=== PATIENT | female | born 1985 | race Caucasian/White ===

== ENCOUNTER 2016-07-12 14:15 | Emergency (ER) | payer MEDICAID ==
[~2016-07-12] VITALS: Ht 170.2 cm; Wt 124.6 kg
[~2016-07-12 14:15] MED LIST: BUSP5TAB2 PO; BUTA1CAP57 PO; CEPH-368 PO; CIPR500T87 PO; CLON0.5T PO; FEXO180T72 PO; IBUP800T PO; LITH600C PO; NORG1TAB7 PO; PROP20TA PO; PROP40TA PO
[2016-07-12] MEDS ORDERED: MORPHINE SULFATE 4 MG/ML, 1ML ONE ×2 (15:52→17:17)
[2016-07-12] MEDS ORDERED: ONDANSETRON 2MG/ML, 2ML ONE (15:52)
[2016-07-12] MEDS: MORPHINE SULFATE 4 MG/ML, 1ML IVPush PRN ×2 (15:56→17:20)
[2016-07-12] MEDS ORDERED: SODIUM CHLORIDE FLUSH 10ML SYR IVF ONE (16:00)
[2016-07-12] MEDS ORDERED: SODIUM CHLORIDE 0.9% 1,000ML IV ONE (16:00)
[2016-07-12] MEDS ORDERED: ONDANSETRON 2MG/ML, 2ML IVPush ONE (16:00)
[2016-07-12 16:09] LABS: HEMOGLOBIN 13.8 g/dL (11.7-16.4)
[2016-07-12 16:22] LABS: BLOOD UREA NITROGEN 8 mg/dL (7-18)
[2016-07-12 16:27] LABS: ASPARTATE AMINO TRANSFERASE 19 U/L (15-37)
[2016-07-12 18:59] VITALS: BP 130/65
== END 2016-07-12 19:04 | disposition home or self-care (01) ==
LOC: ED 15:20
DX: R10.31 Right lower quadrant pain (principal); J45.909 Unspecified asthma, uncomplicated; R51 Headache; G89.29 Other chronic pain
CPT/HCPCS: 36415; 74176; 80053; 81001; 83690; 84703; 85025; 87086; 96361; 96374; 96375; 96376; 99285; J2405; J7030

== ENCOUNTER 2018-04-17 14:21 | Inpatient (IN) | payer MEDICAID ==
[~2018-04-17] VITALS: Ht 172.7 cm; Wt 134.0 kg
[~2018-04-17 14:21] MED LIST changes: +IBUP-1223 PO; -IBUP800T PO
[2018-04-17 14:59] LABS: BASOPHILS # (AUTO) 0.02 x10^3/uL (0-0.1); BASOPHILS % (AUTO) 0 % (0-1); EOSINOPHILS # (AUTO) 0.15 x10^3/uL (0-0.4); EOSINOPHILS % (AUTO) 2 % (1-7); LYMPHOCYTES # (AUTO) 2.07 x10^3/uL (1-3.4); LYMPHOCYTES % (AUTO) 20 % (22-44); MD NO; MEAN CORPUSCULAR HEMOGLOBIN 30.8 pg (27.0-34.8); MEAN CORPUSCULAR HGB CONC 34.7 g/dL (32.4-35.8); MEAN CORPUSCULAR VOLUME 88.9 fL (80-100); MEAN PLATELET VOLUME 7.5 fL (7.4-10.4); MONOCYTES # (AUTO) 0.61 x10^3/uL (0.2-0.8); MONOCYTES % (AUTO) 6 % (2-9); NEUTROPHILS # (AUTO) 7.69 x10^3/uL (1.8-6.8); NEUTROPHILS % (AUTO) 73 % (42-75); PLATELET COUNT 299 x10^3/uL (130-400); RED BLOOD COUNT 4.58 x10^6/uL (3.82-5.3)
[2018-04-17 15:09] LABS: ALANINE AMINOTRANSFERASE 62 U/L (12-78); ALBUMIN 3.8 g/dL (3.4-5.0); ANION GAP 9 mmol/L (5-15); CALCIUM 9.3 mg/dL (8.5-10.1); CHLORIDE 108 mmol/L (98-107)
[2018-04-17 15:11] LABS: ALKALINE PHOSPHATASE 51 U/L (45-117); BILIRUBIN,TOTAL 0.5 mg/dL (0.2-1.0); CREATININE 0.83 mg/dL (0.55-1.02); TOTAL PROTEIN 7.9 g/dL (6.4-8.2)
[2018-04-17] MEDS ORDERED: ALBUTEROL INH (15:11)
[2018-04-17] MEDS ORDERED: ACET-1600 PO (15:11)
[2018-04-17 15:29] LABS: HCG UR SG 1.024 (1.003-1.030); MICROSCOPIC AUTO
[2018-04-17 15:34] LABS: CULTURE INDICATED? NO
[2018-04-17] MEDS ORDERED: SODIUM CHLORIDE 0.9% 1,000ML IVBOLUS ONE (16:00)
[2018-04-17] MEDS ORDERED: ONDANSETRON 2MG/ML, 2ML IVPush ONE (16:00)
[2018-04-17] MEDS ORDERED: SODIUM CHLORIDE FLUSH 10ML SYR IVF ONE (16:00)
[2018-04-17] MEDS ORDERED: MORPHINE SULFATE 4 MG/ML, 1ML IVPush PRN ×2 (16:00→18:00)
[2018-04-17] MEDS ORDERED: FAMO-79 PO (16:17)
[2018-04-17] MEDS ORDERED: MORPHINE SULFATE 4 MG/ML, 1ML ONE (16:25)
[2018-04-17] MEDS ORDERED: ONDANSETRON 2MG/ML, 2ML ONE (16:25)
[2018-04-17] MEDS ORDERED: HYDROmorphone 2 MG/ML, 1ML IVPush PRN ×2 (17:30→20:30)
[2018-04-17] MEDS ORDERED: HYDROmorphone 2 MG/ML, 1ML ONE (18:00)
[2018-04-17] MEDS ORDERED: MIDAZOLAM 1 MG/ML, 2ML ONE (18:41)
[2018-04-17] MEDS ORDERED: SUCCINYLCHOLINE 20 MG/ML, 10ML ONE ×2 (18:41→19:18)
[2018-04-17] MEDS ORDERED: FENTANYL PF 100 MCG/2ML ONE ×3 (18:41→20:15)
[2018-04-17] MEDS ORDERED: PROPOFOL 10 MG/ML, 20ML ONE (19:18)
[2018-04-17] MEDS ORDERED: ROCURONIUM 10 MG/ML,10ML ONE (19:18)
[2018-04-17] MEDS ORDERED: CEFAZOLIN 1,000 MG ONE (19:18)
[2018-04-17] MEDS ORDERED: GLYCOPYRROLATE 0.2MG/1ML, 5ML ONE (19:18)
[2018-04-17] MEDS ORDERED: NEOSTIGMINE 1 MG/ML, 10ML ONE (19:18)
[2018-04-17] MEDS ORDERED: BUPIVACAINE/PF 0.5% INFIL ONE (20:01)
[2018-04-17] MEDS: FENTANYL PF 100 MCG/2ML IV PRN ×2 (20:20→20:37)
[2018-04-17] MEDS ORDERED: OXYcodone 5 MG/5 ML ORAL.SOL UDC ONE (20:25)
[2018-04-17] MEDS ORDERED: METOCLOPRAMIDE 5 MG/ML, 2ML ONE (20:28)
[2018-04-17] MEDS ORDERED: ALBUTEROL SULFATE 2.5 MG/3 ML NPPB PRN (20:30)
[2018-04-17] MEDS ORDERED: LORazepam 2 MG/ML, 1ML IVPush PRN (20:30)
[2018-04-17] MEDS ORDERED: OXYcodone 5 MG/5 ML ORAL.SOL UDC PO PRN (20:30)
[2018-04-17] MEDS ORDERED: PROCHLORPERAZINE 5 MG/ML, 2ML IV PRN (20:30)
[2018-04-17] MEDS ORDERED: METOCLOPRAMIDE 5 MG/ML, 2ML IV PRN (20:30)
[2018-04-17] MEDS ORDERED: SCOPOLAMINE PATCH, 1.5MG PATCH.TD72 TD PRN (20:30)
[2018-04-17] MEDS ORDERED: ACETAMINOPHEN 325 MG TABLET PO PRN (20:30)
[2018-04-17] MEDS ORDERED: MEPERIDINE/PF 25MG/0.5ML IVPush PRN (20:30)
[2018-04-17] MEDS ORDERED: OXYC-302 PO (21:17)
[2018-04-17 21:18] VITALS: BP 117/80
== END 2018-04-17 22:45 | disposition home or self-care (01) | DRG 357 ==
LOC: OR 18:32 → EDIP 18:40 → 4NOR 21:00
PROVIDERS: ADMIT Obstetrics & Gynecology; ATTEND Obstetrics & Gynecology
PROC: 0WJJ4ZZ Inspection of Pelvic Cavity, Percutaneous Endoscopic Approach (ICD-10-PCS; principal; 2018-04-17 18:30)
DX: R10.2 Pelvic and perineal pain (principal); Z68.41 Body mass index [BMI] 40.0-44.9, adult; F41.1 Generalized anxiety disorder; J32.9 Chronic sinusitis, unspecified; E66.9 Obesity, unspecified; I10 Essential (primary) hypertension; J45.909 Unspecified asthma, uncomplicated
CPT/HCPCS: 36415; 76830; 80053; 81001; 81025; 83690; 85025; G0378; J0690; J1170; J2250; J2405; J2704; J2710; J3010; J3490; J0330; J2765; J7030

== ENCOUNTER 2018-05-06 19:08 | Emergency (ER) | payer SELFPAY ==
[~2018-05-06] VITALS: Ht 172.7 cm; Wt 131.0 kg
[~2018-05-06 19:08] MED LIST changes: +ACET-1600 PO; +ALBUTEROL INH; +FAMO-79 PO; +OXYC-302 PO
--- NOTE | 2018-05-06 19:24 | NUR ---
PT SAID SHE WAS SITTING ON TOILET AND HAD A SHARP PAIN. PT HAS HAD FEVER AT HOME OF 102 THIS MORNING, COUGH SINCE SURGERY. PT HAS ALSO HAD PAINFUL URINATION AND FREQUENCY
[2018-05-06] MEDS ORDERED: SODIUM CHLORIDE FLUSH 10ML SYR IVF ONE (19:30)
--- NOTE | 2018-05-06 20:05 | NUR ---
FROILAN SEN TO LAB. PT RESTING WITH NO NEEDS AT THIS TIME. CALL LIGHT IN REACH
[2018-05-06 20:10] LABS: MICROSCOPIC NOT IND
[2018-05-06 20:11] LABS: CULTURE INDICATED? NO
[2018-05-06 20:12] LABS: BASOPHILS # (AUTO) 0.03 x10^3/uL (0-0.1); BASOPHILS % (AUTO) 0 % (0-1); EOSINOPHILS # (AUTO) 0.18 x10^3/uL (0-0.4); EOSINOPHILS % (AUTO) 2 % (1-7); LYMPHOCYTES # (AUTO) 3.08 x10^3/uL (1-3.4); LYMPHOCYTES % (AUTO) 27 % (22-44); MD NO; MEAN CORPUSCULAR HEMOGLOBIN 30.7 pg (27.0-34.8); MEAN CORPUSCULAR HGB CONC 34.2 g/dL (32.4-35.8); MEAN CORPUSCULAR VOLUME 89.7 fL (80-100); MEAN PLATELET VOLUME 7.5 fL (7.4-10.4); MONOCYTES # (AUTO) 0.55 x10^3/uL (0.2-0.8); MONOCYTES % (AUTO) 5 % (2-9); NEUTROPHILS # (AUTO) 7.65 x10^3/uL (1.8-6.8); NEUTROPHILS % (AUTO) 67 % (42-75); PLATELET COUNT 312 x10^3/uL (130-400); RED BLOOD COUNT 4.48 x10^6/uL (3.82-5.3); RED CELL DISTRIBUTION WIDTH 12.7 % (9.6-15.2)
[2018-05-06 20:15] LABS: ALANINE AMINOTRANSFERASE 62 U/L (12-78); ALBUMIN 3.9 g/dL (3.4-5.0); ANION GAP 9 mmol/L (5-15); CALCIUM 8.9 mg/dL (8.5-10.1); CHLORIDE 109 mmol/L (98-107); CREATININE 0.62 mg/dL (0.55-1.02)
[2018-05-06 20:19] LABS: ALKALINE PHOSPHATASE 48 U/L (45-117); BILIRUBIN,TOTAL 0.3 mg/dL (0.2-1.0); TOTAL PROTEIN 8.1 g/dL (6.4-8.2)
--- NOTE | 2018-05-06 20:46 | NUR ---
pt to ct
[2018-05-06] MEDS ORDERED: OMNIPAQUE 350 MG/ML, 100ML BOTTLE ONE (20:56)
--- NOTE | 2018-05-06 21:30 | NUR ---
PT RESTING WAITING FOR CT RESULTS. VSS. CALL LIGHT IN REACH
[2018-05-06 22:10] VITALS: BP 145/89
--- NOTE | 2018-05-06 23:01 | NUR ---
Patient given discharge instructions and they have confirmed that they understand the instructions. Patient ambulatory with steady gait.
== END 2018-05-06 23:04 | disposition home or self-care (01) ==
LOC: ED 19:27
DX: R10.815 Periumbilic abdominal tenderness (principal); R10.84 Generalized abdominal pain; F41.1 Generalized anxiety disorder; Z87.19 Personal history of other diseases of the digestive system
CPT/HCPCS: 36415; 74177; 80053; 81003; 83690; 84703; 85025; 99284; Q9967

== ENCOUNTER 2019-02-17 15:24 | Emergency (ER) | payer MEDICAID ==
[~2019-02-17] VITALS: Ht 172.7 cm; Wt 121.9 kg
[~2019-02-17 15:24] MED LIST changes: +AMPH20CA7 PO; +GABA300C10 PO; +PANT40TA5 PO; +PROP10TA16 PO; +TOPI50TA35 PO
[2019-02-17] MEDS ORDERED: MORPHINE SULFATE 4 MG/ML, 1ML IVPush PRN (17:30)
--- NOTE | 2019-02-17 17:58 | NUR ---
Patient provided clean catch urine, prefers not to have straight catheterization for urine sample. Dr. Rouse notified, OK to send clean catch per Dr. Rouse, verbal order read back and verified.
[2019-02-17] MEDS ORDERED: DIPHENHYDRAMINE 50 MG/ML, 1ML IVPush ONE (18:00)
[2019-02-17] MEDS ORDERED: METOCLOPRAMIDE 5 MG/ML, 2ML IVPush ONE (18:00)
--- NOTE | 2019-02-17 18:10 | NUR ---
Unable to achieve IV access, Dr. Rouse aware of reason for lab and medication delay. Lab called to draw blood.
--- NOTE | 2019-02-17 18:11 | NUR ---
Patient transported for ultrasound at this time.
[2019-02-17] MEDS ORDERED: SODIUM CHLORIDE FLUSH 10ML SYR IVF ONE (18:30)
[2019-02-17 18:31] LABS: MICROSCOPIC NOT IND
[2019-02-17 18:35] LABS: CULTURE INDICATED? NO
--- NOTE | 2019-02-17 18:50 | NUR ---
TASK RN: Provided report to ROWAN Hough. All questions answered. ROWAN Hough to assume care of this pt.
[2019-02-17 19:09] LABS: BASOPHILS # (AUTO) 0.05 x10^3/uL (0-0.1); BASOPHILS % (AUTO) 1 % (0-1); EOSINOPHILS # (AUTO) 0.09 x10^3/uL (0-0.4); EOSINOPHILS % (AUTO) 1 % (1-7); LYMPHOCYTES # (AUTO) 2.66 x10^3/uL (1-3.4); LYMPHOCYTES % (AUTO) 23 % (22-44); MD NO; MEAN CORPUSCULAR HEMOGLOBIN 31.6 pg (27.0-34.8); MEAN CORPUSCULAR HGB CONC 33.9 g/dL (32.4-35.8); MEAN CORPUSCULAR VOLUME 93.2 fL (80-100); MEAN PLATELET VOLUME 7.6 fL (7.4-10.4); MONOCYTES # (AUTO) 0.45 x10^3/uL (0.2-0.8); MONOCYTES % (AUTO) 4 % (2-9); NEUTROPHILS # (AUTO) 8.31 x10^3/uL (1.8-6.8); NEUTROPHILS % (AUTO) 72 % (42-75); PLATELET COUNT 326 x10^3/uL (130-400); RED BLOOD COUNT 4.32 x10^6/uL (3.82-5.3); RED CELL DISTRIBUTION WIDTH 13.7 % (9.6-15.2)
[2019-02-17] MEDS ORDERED: DIPHENHYDRAMINE 50 MG/ML, 1ML ONE (19:14)
[2019-02-17] MEDS ORDERED: METOCLOPRAMIDE 5 MG/ML, 2ML ONE (19:15)
[2019-02-17] MEDS ORDERED: MORPHINE SULFATE 4 MG/ML, 1ML ONE (19:15)
[2019-02-17 19:22] LABS: ALBUMIN 3.9 g/dL (3.4-5.0); ANION GAP 10 mmol/L (5-15); CALCIUM 9.1 mg/dL (8.5-10.1); CHLORIDE 110 mmol/L (98-107)
[2019-02-17 19:28] LABS: ALANINE AMINOTRANSFERASE 37 U/L (12-78); ALKALINE PHOSPHATASE 58 U/L (45-117); BILIRUBIN,TOTAL 0.9 mg/dL (0.2-1.0); CREATININE 0.74 mg/dL (0.55-1.02); TOTAL PROTEIN 8.3 g/dL (6.4-8.2)
--- NOTE | 2019-02-17 19:30 | NUR ---
reports pain is a 8/10 in abd., After pain medications pt reports pain is a 2/10 and pt also verbalizes relief from nausea.
--- NOTE | 2019-02-17 19:46 | NUR ---
PT PLACED FOR RECHECK BY ERP
--- NOTE | 2019-02-17 20:05 | NUR ---
pt ambulatory to the bathroom with steady gait
[2019-02-17 20:18] VITALS: BP 152/65
--- NOTE | 2019-02-17 20:18 | NUR ---
pt resting on gurwilkinson. no acute distress. no requests at this time.
== END 2019-02-17 20:56 | disposition home or self-care (01) ==
LOC: ED 20:10
DX: R10.2 Pelvic and perineal pain (principal); G89.29 Other chronic pain; R11.0 Nausea; R10.31 Right lower quadrant pain; F41.1 Generalized anxiety disorder; Z90.49 Acquired absence of other specified parts of digestive tract; Z88.0 Allergy status to penicillin; Z88.8 Allergy status to other drugs, medicaments and biological substances; Z88.6 Allergy status to analgesic agent
CPT/HCPCS: 36415; 76830; 80053; 81003; 85025; 96374; 96375; 99284; J1200; J2270

== ENCOUNTER 2019-02-28 17:18 | Emergency (ER) | payer MEDICAID, OTHER ==
[~2019-02-28] VITALS: Ht 172.7 cm; Wt 122.6 kg
[2019-02-28 17:33] VITALS: BP 164/96
[2019-02-28] MEDS ORDERED: ACETAMINOPHEN 500 MG TABLET ONE (19:00)
[2019-02-28] MEDS ORDERED: ACETAMINOPHEN 500 MG TABLET PO ONE (19:00)
[2019-02-28] MEDS ORDERED: OXYcodone 5 MG/5 ML ORAL.SOL UDC PO PRN ×2 (20:30→21:00)
[2019-02-28] MEDS ORDERED: OXYcodone 5 MG/5 ML ORAL.SOL UDC ONE (20:58)
== END 2019-02-28 21:27 | disposition home or self-care (01) ==
LOC: ED 21:10
DX: S82.892A Other fracture of left lower leg, initial encounter for closed fracture (principal); G89.11 Acute pain due to trauma; M25.562 Pain in left knee; M25.572 Pain in left ankle and joints of left foot; R51 Headache; G89.29 Other chronic pain; Z90.49 Acquired absence of other specified parts of digestive tract; W10.9XXA Fall (on) (from) unspecified stairs and steps, initial encounter; Y93.89 Activity, other specified; Y92.69 Other specified industrial and construction area as the place of occurrence of the external cause; Y99.8 Other external cause status
CPT/HCPCS: 29515; 99283

== ENCOUNTER 2019-03-01 14:05 | Emergency (ER) | payer OTHER ==
[~2019-03-01] VITALS: Ht 172.7 cm; Wt 129.2 kg
[2019-03-01 14:20] VITALS: BP 168/94
[2019-03-01] MEDS ORDERED: OXYcodone/APAP 7.5/325MG TABLET PO ONE (15:30)
[2019-03-01] MEDS ORDERED: OXYcodone/APAP 7.5/325MG TABLET ONE (15:36)
--- NOTE | 2019-03-01 15:57 | NUR ---
DC EDUCATION PROVIDED, PT DEMONSTRATES UNDERSTANDING. PT AMBULATED STEADILY TO DC WITH RN USING OWN CRUTCHES. FRIEND TO TRANSPORT PT HOME FROM [facility]
== END 2019-03-01 15:59 | disposition home or self-care (01) ==
LOC: ED 15:50
DX: M25.872 Other specified joint disorders, left ankle and foot (principal); Z90.49 Acquired absence of other specified parts of digestive tract
CPT/HCPCS: 29515; 99283

== ENCOUNTER 2019-03-26 12:29 | Emergency (ER) | payer MEDICAID ==
[~2019-03-26] VITALS: Ht 172.7 cm; Wt 125.8 kg
[2019-03-26] MEDS ORDERED: SODIUM CHLORIDE 0.9% 1,000 ML IV ONE (13:05)
[2019-03-26] MEDS ORDERED: MORPHINE SULFATE 4 MG/ML, 1ML ONE (13:24)
[2019-03-26] MEDS ORDERED: ONDANSETRON 2MG/ML, 2ML ONE (13:24)
[2019-03-26] MEDS ORDERED: DIPHENHYDRAMINE 50 MG/ML, 1ML ONE (13:29)
[2019-03-26] MEDS ORDERED: MORPHINE SULFATE 4 MG/ML, 1ML IVPush PRN (13:30)
[2019-03-26] MEDS ORDERED: SODIUM CHLORIDE FLUSH 10ML SYR IVF ONE (13:30)
[2019-03-26] MEDS ORDERED: ONDANSETRON 2MG/ML, 2ML IVPush ONE (13:30)
[2019-03-26] MEDS ORDERED: DIPHENHYDRAMINE 50 MG/ML, 1ML IVPush ONE (13:30)
[2019-03-26] MEDS ORDERED: SODIUM CHLORIDE 0.9% 1,000ML IVBOLUS ONE (13:30)
[2019-03-26 13:33] LABS: BASOPHILS # (AUTO) 0.05 x10^3/uL (0-0.1); BASOPHILS % (AUTO) 0 % (0-1); EOSINOPHILS # (AUTO) 0.12 x10^3/uL (0-0.4); EOSINOPHILS % (AUTO) 1 % (1-7); LYMPHOCYTES # (AUTO) 2.47 x10^3/uL (1-3.4); LYMPHOCYTES % (AUTO) 23 % (22-44); MD NO; MEAN CORPUSCULAR HEMOGLOBIN 31.9 pg (27.0-34.8); MEAN CORPUSCULAR HGB CONC 33.9 g/dL (32.4-35.8); MEAN PLATELET VOLUME 7.9 fL (7.4-10.4); MONOCYTES # (AUTO) 0.42 x10^3/uL (0.2-0.8); MONOCYTES % (AUTO) 4 % (2-9); NEUTROPHILS # (AUTO) 7.87 x10^3/uL (1.8-6.8); NEUTROPHILS % (AUTO) 72 % (42-75); PLATELET COUNT 343 x10^3/uL (130-400); RED CELL DISTRIBUTION WIDTH 14.3 % (9.6-15.2)
--- NOTE | 2019-03-26 13:35 | NUR ---
IV PLACED,LABS DRAWN WITH START. IVF BOLUS AND MEDS GIVEN PER ERP ORDER. PT WITH ITCHING AND REDNESS UP ARM IMMEDIATELY AFTER MORPHINE GIVEN. ORDER FOR BENADRYL OBTAINED FROM ERP AND GIVEN WITH IMMEDIATE EFFECT. PT TO US. URINE CUP AND CALL LIGHT ON TRAY TABLE.
[2019-03-26 13:45] LABS: ALANINE AMINOTRANSFERASE 37 U/L (12-78); ALBUMIN 3.8 g/dL (3.4-5.0); ANION GAP 8 mmol/L (5-15); CALCIUM 8.9 mg/dL (8.5-10.1); CHLORIDE 115 mmol/L (98-107); CREATININE 0.64 mg/dL (0.55-1.02)
[2019-03-26 13:50] LABS: ALKALINE PHOSPHATASE 52 U/L (45-117); BILIRUBIN,TOTAL 0.3 mg/dL (0.2-1.0); TOTAL PROTEIN 8.3 g/dL (6.4-8.2)
--- NOTE | 2019-03-26 14:02 | NUR ---
PT BACK FROM US. URINE COLLECTED/SENT TO LAB. PT STATES ITCHING, PAIN AND NAUSEA REDUCED AT THIS TIME. VSS/UPDATED IN COMPUTER. WARM BLANKET AND ICE PACK PROVIDED PER REQUEST. CONTINUE TO AWAIT RESULTS
[2019-03-26 14:05] LABS: MICROSCOPIC NOT IND
[2019-03-26 14:22] LABS: CULTURE INDICATED? NO
--- NOTE | 2019-03-26 14:32 | NUR ---
ALL RESULTS BACK, PT FOR RECHECK.
--- NOTE | 2019-03-26 14:51 | NUR ---
PO CHALLENGE STARTED.
--- NOTE | 2019-03-26 15:12 | NUR ---
PT TOLERATED PO CHALLENGE WELL, NO VOMITING.
[2019-03-26 16:01] VITALS: BP 124/72
== END 2019-03-26 16:05 | disposition home or self-care (01) ==
LOC: ED 15:37
DX: G89.29 Other chronic pain (principal); R10.31 Right lower quadrant pain; R11.2 Nausea with vomiting, unspecified; K21.9 Gastro-esophageal reflux disease without esophagitis; E66.9 Obesity, unspecified; Z90.49 Acquired absence of other specified parts of digestive tract
CPT/HCPCS: 36415; 76830; 80053; 81003; 83690; 84703; 85025; 96361; 96374; 96375; 99284; J1200; J2270; J2405; J7030

== ENCOUNTER 2019-05-13 09:41 | Emergency (ER) | payer MEDICAID ==
[~2019-05-13] VITALS: Ht 165.1 cm; Wt 125.5 kg
[2019-05-13] MEDS ORDERED: TOPOMAX (10:09)
[2019-05-13] MEDS ORDERED: MORPHINE SULFATE 4 MG/ML, 1ML IVPush PRN (10:30)
[2019-05-13] MEDS ORDERED: ONDANSETRON 2MG/ML, 2ML ONE (10:44)
[2019-05-13] MEDS ORDERED: MORPHINE SULFATE 4 MG/ML, 1ML ONE (10:44)
[2019-05-13] MEDS ORDERED: FAMOTIDINE 20 MG/2 ML ONE (10:45)
[2019-05-13 10:49] LABS: BASOPHILS # (AUTO) 0.05 x10^3/uL (0-0.1); BASOPHILS % (AUTO) 1 % (0-1); EOSINOPHILS # (AUTO) 0.16 x10^3/uL (0-0.4); EOSINOPHILS % (AUTO) 2 % (1-7); LYMPHOCYTES # (AUTO) 2.07 x10^3/uL (1-3.4); LYMPHOCYTES % (AUTO) 22 % (22-44); MD NO; MEAN CORPUSCULAR HEMOGLOBIN 30.6 pg (27.0-34.8); MEAN CORPUSCULAR HGB CONC 33.7 g/dL (32.4-35.8); MEAN CORPUSCULAR VOLUME 90.8 fL (80-100); MEAN PLATELET VOLUME 7.2 fL (7.4-10.4); MONOCYTES # (AUTO) 0.35 x10^3/uL (0.2-0.8); MONOCYTES % (AUTO) 4 % (2-9); NEUTROPHILS % (AUTO) 72 % (42-75); PLATELET COUNT 300 x10^3/uL (130-400); RED BLOOD COUNT 4.35 x10^6/uL (3.82-5.3); RED CELL DISTRIBUTION WIDTH 13.1 % (9.6-15.2)
[2019-05-13 10:58] LABS: ALBUMIN 3.6 g/dL (3.4-5.0); ANION GAP 9 mmol/L (5-15); CALCIUM 8.2 mg/dL (8.5-10.1); CHLORIDE 114 mmol/L (98-107)
[2019-05-13] MEDS ORDERED: SODIUM CHLORIDE 0.9% 1,000ML IVBOLUS ONE (11:00)
[2019-05-13] MEDS ORDERED: FAMOTIDINE 20 MG/2 ML IVPush ONE (11:00)
[2019-05-13] MEDS ORDERED: ONDANSETRON 2MG/ML, 2ML IVPush ONE (11:00)
[2019-05-13 11:01] LABS: CREATININE 0.71 mg/dL (0.55-1.02)
[2019-05-13 11:02] LABS: ALANINE AMINOTRANSFERASE 36 U/L (12-78); ALKALINE PHOSPHATASE 51 U/L (45-117); BILIRUBIN,TOTAL 0.4 mg/dL (0.2-1.0)
[2019-05-13] MEDS ORDERED: SODIUM CHLORIDE FLUSH 10ML SYR IVF ONE (11:30)
--- NOTE | 2019-05-13 11:44 | NUR ---
PT REPORTS PAIN IMPROVEMENT
[2019-05-13 13:09] VITALS: BP 112/66
--- NOTE | 2019-05-13 13:10 | NUR ---
TASK RN: PT RPTS PAIN 06/07 AND IS REQUESTING D/C. PIV D/C'D AND PT GETTING DRESSED. PT VERBALIZES UNDERSTANDING TO WAIT FOR D/C INSTRUCTIONS.
--- NOTE | 2019-05-13 13:35 | NUR ---
TASK RN: Patient/Caregiver given discharge instructions and they have confirmed that they understand the instructions. Patient ambulatory with steady gait.
== END 2019-05-13 13:43 | disposition home or self-care (01) ==
LOC: ED 13:35
DX: R10.31 Right lower quadrant pain (principal); G89.29 Other chronic pain; R11.2 Nausea with vomiting, unspecified; K21.9 Gastro-esophageal reflux disease without esophagitis; E66.9 Obesity, unspecified; Z90.49 Acquired absence of other specified parts of digestive tract; Z88.0 Allergy status to penicillin
CPT/HCPCS: 36415; 80053; 83690; 85025; 96361; 96374; 96375; 99283; J2270; J2405; J3490; J7030

== ENCOUNTER 2019-06-13 16:53 | Emergency (ER) | payer MEDICAID ==
[~2019-06-13] VITALS: Ht 172.7 cm; Wt 129.3 kg
[~2019-06-13 16:53] MED LIST changes: +TOPOMAX
--- NOTE | 2019-06-13 17:17 | NUR ---
PT HERE TODAY FOR N/V/ABDOMINAL PAIN THAT IS "WORSE THAN NORMAL." PT STATES AT BASELINE SHE HAS ABDOMINAL PAIN AND NAUSEA BUT IT USUALLY GOES AWAY. PT CURRENTLY NAUSEAS, NO EMESIS AT THIS TIME. RESTING ON GURNEY. CONNECTED TO MONITOR. VSS.
--- NOTE | 2019-06-13 17:19 | NUR ---
PT AMBULATORY WITH STEADY GAIT TO AND BACK FROM BATHROOM. PROVIDED URINE SAMPLE.
--- NOTE | 2019-06-13 17:22 | NUR ---
MD AT BEDSIDE NOW.
--- NOTE | 2019-06-13 17:22 | NUR ---
PT STATES SHE HAS DX OF "INAPPROPRIATE TACHYCARDIA" AND RECENTLY RAN OUT OF HER METOPROLOL THAT CONTROLS IT.
[2019-06-13] MEDS ORDERED: ONDANSETRON 2MG/ML, 2ML ONE (17:37)
[2019-06-13] MEDS: ONDANSETRON 2MG/ML, 2ML IVPush ONE ×2 (17:42→18:11)
[2019-06-13] MEDS: SODIUM CHLORIDE 0.9% 1,000ML IVBOLUS ONE ×2 (17:42→18:12)
[2019-06-13] MEDS: SODIUM CHLORIDE FLUSH 10ML SYR IVF ONE ×2 (17:42→18:11)
[2019-06-13] MEDS ORDERED: DIPHENHYDRAMINE 50 MG/ML, 1ML ONE (17:43)
[2019-06-13] MEDS: DIPHENHYDRAMINE 50 MG/ML, 1ML IVPush ONE ×2 (17:44→18:11)
[2019-06-13 18:12] LABS: MICROSCOPIC INDICATED
--- NOTE | 2019-06-13 18:12 | NUR ---
PIV STARTED. PT MEDICATED PER EMAR. URINE SENT TO LAB.
[2019-06-13 18:16] LABS: BASOPHILS # (AUTO) 0.05 x10^3/uL (0-0.1); BASOPHILS % (AUTO) 1 % (0-1); EOSINOPHILS % (AUTO) 1 % (1-7); LYMPHOCYTES # (AUTO) 2.14 x10^3/uL (1-3.4); LYMPHOCYTES % (AUTO) 23 % (22-44); MD NO; MEAN CORPUSCULAR HEMOGLOBIN 30.6 pg (27.0-34.8); MEAN CORPUSCULAR HGB CONC 33.9 g/dL (32.4-35.8); MEAN CORPUSCULAR VOLUME 90.2 fL (80-100); MEAN PLATELET VOLUME 7.7 fL (7.4-10.4); MONOCYTES # (AUTO) 0.48 x10^3/uL (0.2-0.8); MONOCYTES % (AUTO) 5 % (2-9); NEUTROPHILS # (AUTO) 6.59 x10^3/uL (1.8-6.8); NEUTROPHILS % (AUTO) 70 % (42-75); PLATELET COUNT 286 x10^3/uL (130-400); RED BLOOD COUNT 4.38 x10^6/uL (3.82-5.3); RED CELL DISTRIBUTION WIDTH 13.9 % (9.6-15.2)
[2019-06-13 18:22] LABS: CULTURE INDICATED? NO
[2019-06-13 18:24] LABS: ALANINE AMINOTRANSFERASE 26 U/L (12-78); ALBUMIN 3.6 g/dL (3.4-5.0); ANION GAP 9 mmol/L (5-15); CALCIUM 8.6 mg/dL (8.5-10.1); CHLORIDE 114 mmol/L (98-107); CREATININE 0.78 mg/dL (0.55-1.02)
[2019-06-13 18:28] LABS: ALKALINE PHOSPHATASE 54 U/L (45-117); BILIRUBIN,TOTAL 0.3 mg/dL (0.2-1.0)
--- NOTE | 2019-06-13 18:30 | NUR ---
PT UP FOR RECHECK NOW.
--- NOTE | 2019-06-13 18:40 | NUR ---
MD AT BEDSIDE ASSESSING PT NOW.
[2019-06-13] MEDS ORDERED: MORPHINE SULFATE 4 MG/ML, 1ML IVPush ONE (19:00)
[2019-06-13] MEDS ORDERED: MORPHINE SULFATE 4 MG/ML, 1ML ONE (19:28)
--- NOTE | 2019-06-13 19:38 | NUR ---
REPORT FROM CHARLES DONAHUE. PT MEDICATED FOR PAIN. FLUIDS AKLMOST FINISHED. PT TO BE DISCHARGED WHEN FLUIDS COMPLETE.
--- NOTE | 2019-06-13 20:01 | NUR ---
Patient given discharge instructions and they have confirmed that they understand the instructions. Patient ambulatory with steady gait.
[2019-06-13 20:02] VITALS: BP 127/81
== END 2019-06-13 20:04 | disposition home or self-care (01) ==
LOC: ED 17:49
DX: R10.84 Generalized abdominal pain (principal); R11.2 Nausea with vomiting, unspecified; R19.7 Diarrhea, unspecified; R00.0 Tachycardia, unspecified; K21.9 Gastro-esophageal reflux disease without esophagitis; Z90.49 Acquired absence of other specified parts of digestive tract; Z88.0 Allergy status to penicillin; Z88.5 Allergy status to narcotic agent; Z88.8 Allergy status to other drugs, medicaments and biological substances
CPT/HCPCS: 36415; 80053; 81001; 84703; 85025; 93005; 96361; 96374; 96375; 99284; J1200; J2270; J2405; J7030